=== PATIENT | male | born 1995 | race Caucasian/White ===

== ENCOUNTER 2024-10-11 21:18 | Emergency (ER) | payer MEDICAID, SELFPAY ==
[2024-10-11 21:22] VITALS: BP 148/86; PULSE 118; RESP 18; TEMP 36.9; O2SAT 96; BMI 29.0
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
== END 2024-10-11 22:04 | disposition home or self-care (01) ==
LOC: SERX 21:58
PROVIDERS: Emergency Provider Emergency Medicine
DX: Z02.89 Encounter for other administrative examinations (principal)
CPT/HCPCS: 99281